=== PATIENT | female | born 1990 | race Hispanic/Latino ===

== ENCOUNTER 2017-01-13 06:00 | Inpatient (IN) | payer OTHER ==
[~2017-01-13] VITALS: Ht 152.4 cm; Wt 73.5 kg
[~2017-01-13 06:00] MED LIST: PEN-VK500 MG PO
[2017-01-13 06:37] VITALS: BP 117/60
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
--- NOTE | 2017-01-13 08:43 | Operative Report ---
Operative/Inv Procedure Report Surgery Date: 01/13/17 Name of Procedure: Primary low flap transverse section Pre-Operative Diagnosis: Term previous Erb's palsy Post-Operative Diagnosis: Same Estimated Blood Loss: 500 Surgeon/Fleshing Machine Operator: JORGE ALBERTO ONTIVEROS,RICHARD Mcnamaraand dr lemus Anesthesia: block Operative/Procedure Note Note: She was taken the operating room placed prone position after adequate anesthesia patient placed in dorsolithotomy position the vagina from dorsal fashion a Albrecht was placed patient was returned spine position on and spinal narcotic had been placed adequate skin testing for anesthesia has been performed the abdomen was prepped and draped so fashion 2 fingerbreadths of symptoms pubis in midline skin was cut carried down to rectus fascia which was cut in curvilinear fashion I direction using curved males perineal cavity was entered bluntly high into the abdomen low blade is the Shana was placed and lower in the incision the visceral peritoneum of the uterus was nicked and the bladder flap was developed in the lower uterine segment the uterus was nicked entered with the back of knife dissected bluntly I at this point the was delivered over the abdominal wall suction well until clear the cord was clamped clamped and cut and was handed to aligner was waiting delivering to aid in resuscitation placenta was delivered manually noted to be intact was wiped clean with 2 wet dry lap pads to ensure it was free of adherent membranes . Intramyometrial Pitocin and intra-venous Pitocin was started dictating uterine contractility which was apparent area uses returned to abdominal cavity after it had been closed with 2 running locking sutures of 0 suture hemostasis was apparent the abdomen was irrigated close amounts once until clear the peritoneum was reapproximated using 30 the fascia was reapproximated to continue sutures #1 Bovie coagulation substance tissue was performed on the skin was reapproximated margaret at the end the case counts correct urine was clear the mother and infant were transferred to recovery room awake and alert with counts correct after sterile dressing had been applied to the incision Findings: Viable female infant 7 lbs. 15 oz. normal tubes and ovaries bilaterally otherwise normal anatomy
[2017-01-14 08:09] LABS: ABSOLUTE BASOPHIL COUNT 0 /CUMM (0.0-0.2); ABSOLUTE EOSINOPHIL COUNT 0 /CUMM (0.0-0.7); ABSOLUTE GRANULOCYTE CT 9.5 /CUMM (1.4-6.5); ABSOLUTE LYMPH COUNT 1.9 /CUMM (1.2-3.4); ABSOLUTE MONOCYTE COUNT 0.6 /CUMM (0.10-0.60); BASOPHIL % 0.4 % (0.0-2.0); EOSINOPHIL % 0.1 % (0-5); GRANULOCYTE % 78.6 % (42.2-75.2); MEAN CORPUSCULAR HGB 29.7 PG (27.0-31.0); MEAN CORPUSCULAR HGB CONC 34.3 G/DL (33.0-37.0); MEAN CORPUSCULAR VOLUME 86.5 FL (81.0-99.0); MEAN PLATELET VOLUME 8.4 FL (7.4-10.4); PLATELET COUNT 174 /CUMM (130-400); RBC DISTRIBUTION WIDTH 13.9 % (11.5-14.5); RED BLOOD CELL CT 2.99 /CUMM (4.20-5.40); WHITE BLOOD CELL COUNT 12.1 /CUMM (4.8-10.8)
[2017-01-14 08:55] LABS: HEMATOCRIT 25.9 % (37-47)
--- NOTE | 2017-01-14 13:32 | PN- Post Delivery/GYN ---
Subjective Subjective: NO COMPLAINTS ABD BS NT INCISION CDI [id number] Objective Last 24 Hrs of Vital Signs/I&O PER CHART Assessment/Plan Assessment/Plan ASSESSS/P C/S PLAN CONTPPC
[2017-01-15] MEDS ORDERED: IBUPROFEN800 M1 PO (09:04)
[2017-01-15] MEDS ORDERED: PERCOCET 5-3251 EACH PO (09:04)
--- NOTE | 2017-01-15 09:08 | PN- Post Delivery/GYN ---
Subjective Subjective: WANTS TO GO HOME Objective Last 24 Hrs of Vital Signs/I&O VSS PER CHART Physical Exam: PLEASANT HF IN NAD ABD SOFT NT INCISION CDI EXT-EDEMA -HOMANS Assessment/Plan Assessment/Plan ASSESS S/P C/S ANEMIC PLAN D/C WITH INSTRUCTION AND IRON
--- NOTE | 2017-02-06 08:28 | Surgical Discharge Summary ---
Visit Information Visit Dates Admission Date: 01/13/17 Discharge Date: 01/16/17 History of Present Illness Chief Complaint: Previous Erb's palsy patient choice primary section Surgical History Pertinent Surgical History: none Psychosocial History Who Do You Live With? Patient/Self Services at Home: None What is Your Primary Language? Cymraes Review of Systems: 13 point review of systems as stated in HPI Hospital Course Course Attending Physician: RICHARD AUZL MD Primary Care Physician: FERNANDA CASON APRN Hospital Course: 25-year-old 2 para 1001 on underwent a primary low flap transverse section secondary to previous Erb's palsy patient did well tolerating on anesthesia urinating without use of Albrecht she was advanced to a regular diet first postoperative day she did well she bonded well with her and on the third postoperative day she was discharged home following physical exam she's a pleasant white female HEENT anicteric lungs clear heart S1 and S2 abdomen soft on incision clean dry and intact extremities negative edema negative Homans lochia minimal on Allergies: Coded Allergies: Sulfa (Sulfonamide Antibiotics) (Severe, TONGUE SWELLING 01/13/17) Disposition Summary Disposition Principal Diagnosis: Status post primary low flap transverse section Additional Diagnosis: Anemia Discharge Disposition: home or self care Discharge Instructions General Discharge Information Code Status: Full Code Patient's Diet: R Patient's Activity: Pelvic rest no heavy lifting greater than 15 pounds for 6 weeks nothing in the vagina for 6 weeks no driving for 2 weeks Follow-Up Instructions/Appts: This point return visit for removal of margaret in 1 week my office in 2 weeks Medications at Discharge Discharge Medications: Stop taking the following medications: Penicillin V Potassium (Pen-Vk) 500 MG TAB ORAL THREE TIMES DAILY Days = 10 Start taking the following new medications: Ibuprofen (Ibuprofen) 800 MG TABLET 800 Milligram ORAL EVERY SIX HOURS NEEDED as needed for UTERINE CRAMPING Qty = 30 No Refills Oxycodone HCl/Acetaminophen (Percocet 5-325 MG Tablet) 5 MG-325 MG TABLET 1 Tablet ORAL EVERY 4 HOURS NEEDED as needed for PAIN SCALE 4-6 (MODERATE ) Qty = 30 No Refills
== END 2017-01-16 07:03 | DRG 540 ==
LOC: GNO 06:00 → SDA 07:00 → STS 07:00 → EDSTATUS 07:00 → GNO 10:34
PROVIDERS: ADMIT Specialist
PROC: 10D00Z1 Extraction of Products of Conception, Low, Open Approach (ICD-10-PCS; principal; 2017-01-13)
DX: O69.82X0 Labor and delivery complicated by other cord entanglement, without compression, not applicable or unspecified (principal); Z3A.39 39 weeks gestation of pregnancy; Z37.0 Single live birth
CPT/HCPCS: GNOS; 81001; 87070; 87086; J0131; J0690; J1200; J1650; J1885; J7120

== ENCOUNTER 2018-02-27 17:38 | Emergency (ER) | payer OTHER ==
[~2018-02-27 17:38] MED LIST changes: +IBUPROFEN800 M1 PO; +PERCOCET 5-3251 EACH PO
[2018-02-27 18:00] VITALS: BP 108/60
[2018-02-27] MEDS ORDERED: CYCLOBENZAPRINE5 M2 PO (18:11)
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
== END 2018-02-27 18:27 ==
LOC: ERH 17:38
DX: S29.012A Strain of muscle and tendon of back wall of thorax, initial encounter (principal); V49.40XA Driver injured in collision with unspecified motor vehicles in traffic accident, initial encounter; Y92.9 Unspecified place or not applicable